=== PATIENT | female | born 1980 | race Caucasian/White ===

== ENCOUNTER 2025-01-27 06:37 | Day surgery (SDC) | payer OTHER ==
[~2025-01-27] VITALS: Ht 174 cm; Wt 118.2 kg
[2025-01-27] MEDS ORDERED: ALBUTEROL SULFATE 2.5 MG/0.5 ML NEB SOLUTION NEB ONE (06:38)
[2025-01-27] MEDS ORDERED: LIDOCAINE 4% 50 ML SOLUTION TP ONE (06:38)
[2025-01-27] MEDS ORDERED: LIDOCAINE 2% 11 ML JELLY TP ONE (06:38)
[2025-01-27] MEDS ORDERED: BENZOCAINE 20% 50 MCG/SPRAY 57 GM TP ONE (06:38)
[2025-01-27] MEDS ORDERED: GABA-1181 PO (07:00)
[2025-01-27] MEDS ORDERED: ESCI-8 PO (07:00)
[2025-01-27] MEDS ORDERED: MONT-35 PO (07:00)
[2025-01-27] MEDS ORDERED: TRAZ-257 PO (07:00)
[2025-01-27] MEDS ORDERED: ROSU40TA88 PO (07:00)
[2025-01-27] MEDS ORDERED: LEVO200 PO (07:00)
[2025-01-27] MEDS ORDERED: FAMO40TA7 PO (07:00)
[2025-01-27] MEDS ORDERED: LIDO700A30 TP (07:00)
[2025-01-27] MEDS ORDERED: HYDR-4584 PO (07:00)
[2025-01-27] MEDS: SODIUM CHLORIDE 0.9% 1,000 ML IV ONE (07:32)
[2025-01-27] MEDS ORDERED: MIDAZOLAM HCL 2 MG/2 ML VIAL ONE (08:19)
[2025-01-27] MEDS ORDERED: FentaNYL CITRATE PF 100 MCG/2 ML VIAL ONE (08:19)
[2025-01-27 08:57] VITALS: PULSE 63; RESP 17; O2SAT 100
[2025-01-27] MEDS ORDERED: MethylPREDNISolone SOD SUCC 125 MG/2 ML VIAL ONE (09:31)
[2025-01-27] MEDS: MethylPREDNISolone SOD SUCC 125 MG/2 ML VIAL IVP ONE (09:35)
== END 2025-01-27 12:15 | disposition home or self-care (01) ==
LOC: SURGERY 06:37
PROVIDERS: ATTEND Internal Medicine Critical Care Medicine
DX: R05.3 Chronic cough (principal); J38.4 Edema of larynx; B37.0 Candidal stomatitis; K76.0 Fatty (change of) liver, not elsewhere classified; R04.2 Hemoptysis; E03.9 Hypothyroidism, unspecified; Z98.890 Other specified postprocedural states; Z79.899 Other long term (current) drug therapy; F17.210 Nicotine dependence, cigarettes, uncomplicated; Z91.018 Allergy to other foods
CPT/HCPCS: 31623; 84703; 87206; 87101; 87220; 87070; 88108; 31624; 94640; 71045; 87015; J3010; J2250; J2919; J7613; Z7610